=== PATIENT | female | born 1985 | race Caucasian/White ===

== ENCOUNTER 2018-09-01 02:22 | Inpatient (IN) | payer OTHER ==
[2018-09-01] MEDS ORDERED: KETOROLAC 30 MG/ML 1 ML VIAL IM STA (02:35)
[2018-09-01] MEDS: ONDANSETRON ODT 4 MG TAB PO STA ×2 (02:59→04:38)
--- NOTE | 2018-09-01 03:20 | XR ---
EXAMINATION TYPE: XR ankle limited RT DATE OF EXAM: 09/01/2018 COMPARISON: NONE HISTORY: Fell down the stairs. Pain. TECHNIQUE: 2 views FINDINGS: There is a 5 mm displaced transverse fracture of the medial malleolus. There is comminuted fracture distal shaft of the fibula. Ankle mortise is not significantly widened. The talus is intact. Subtalar joint appears normal. There is a 2 x 1 cm chip fracture of the posterior malleolus. IMPRESSION: There is trimalleolar type fracture of the ankle joint.
--- NOTE | 2018-09-01 03:21 | XR ---
EXAMINATION TYPE: XR foot limited RT DATE OF EXAM: 09/01/2018 COMPARISON: NONE HISTORY: Fall. Ankle pain. TECHNIQUE: 3 views FINDINGS: Metatarsals are intact. Joint spaces of the foot are intact. There are no erosions. There i s no subluxation. There is noted the trimalleolar type fracture of the distal tibia and fibula. IMPRESSION: No foot fracture seen.
[2018-09-01] MEDS ORDERED: MORPHINE SULFATE 2 MG/ML SYRINGE IVP STA (04:04)
[2018-09-01] MEDS ORDERED: SODIUM CHLORIDE 0.9% 1,000 ML IV ONE (04:04)
[2018-09-01] MEDS ORDERED: NALOXONE 0.4 MG/ML 1 ML VIAL IV PRN (04:05)
[2018-09-01] MEDS ORDERED: MORPHINE SULFATE 4 MG/ML SYRINGE IV PRN (04:05)
--- NOTE | 2018-09-01 04:06 | ED ---
Fall HPI - General Chief Complaint: Fall Stated Complaint: Fall, ankle injury Time Seen by Provider: 09/01/18 02:27 Source: EMS Mode of arrival: EMS - History of Present Illness Initial Comments: 33-year-old female patient presents to the emergency department today with complaints of right ankle pain after a slip and fall injury. Patient states that she was coming out of the bar and slipped down about 4 stairs twisting the ankle. States she is intoxicated. She denies hitting her head or losing consciousness. States that her only injury is the ankle. States she is unable to bear weight or walk on it. States it occurred just prior to arrival and she came right here. She denies any other injuries. She is unsure if she may be . States she is intoxicated. Patient denies any headache, neck pain, back pain, chest pain, shortness of breath, dizziness, weakness, abdominal pain , or difficulties with bowel movements or urination. - Related Data Allergies Allergy/AdvReac Type Severity Reaction Status Date / Time No Known Allergies Allergy Verified 09/01/18 02:26 Review of Systems ROS Statement: Those systems with pertinent positive or pertinent negative responses have been documented in the HPI. ROS Other: All systems not noted in ROS Statement are negative. Past Medical History Past Medical History: No Reported History History of Any Multi-Drug Resistant Organisms: None Reported Past Surgical History: No Surgical Hx Reported Past Psychological History: Anxiety Smoking Status: Never smoker Past Alcohol Use History: Occasional Past Drug Use History: None Reported General Exam Limitations: no limitations General appearance: alert, in no apparent distress, appears intoxicated, other ( Physical well-developed, well-nourished adult female patient in no acute distress. Vital signs upon presentation are temperature 98.1F, pulse 100, respirations 20, blood pressure 120/76, pulse ox 97% on room air.) Head exam: Present: atraumatic, normocephalic, normal inspection Eye exam: Present: normal appearance, PERRL, EOMI. Absent: scleral icterus, conjunctival injection, periorbital swelling ENT exam: Present: normal exam, normal oropharynx, mucous membranes moist Neck exam: Present: normal inspection, full ROM, other (Nontender, no step-off, no deformity to firm midline palpation of the posterior cervical spine. Full range of motion without pain or limitation.). Absent: tenderness, meningismus, lymphadenopathy Respiratory exam: Present: normal lung sounds bilaterally. Absent: respiratory distress, wheezes, rales, rhonchi, stridor Cardiovascular Exam: Present: regular rate, normal rhythm, normal heart sounds. Absent: systolic murmur, diastolic murmur, rubs, gallop, clicks GI/Abdominal exam: Present: soft, normal bowel sounds. Absent: distended, tenderness, guarding, rebound, rigid Extremities exam: Present: full ROM, tenderness (Tenderness over the entirety of the ankle, medial and lateral malleolus. ), normal capillary refill, other ( Soft tissue swelling surrounding the medial and lateral malleolus. Limited range of motion to the right ankle. Skin is pink, warm, and dry. Cap refills less than 3 seconds. Pedal and posttibial pulses 2+ and equal bilaterally.). Absent: normal inspection, pedal edema, joint swelling, calf tenderness Back exam: Present: normal inspection, other (Nontender, no step-off, no deformity to firm midline palpation of the thoracic and lumbar vertebrae. Full range of motion without pain or limitation.). Absent: vertebral tenderness Neurological exam: Present: alert, oriented X3, CN II-XII intact Psychiatric exam: Present: anxious Skin exam: Present: warm, dry, intact, normal color. Absent: rash Course Vital Signs 09/01/18 02:23 Temperature 98.1 F Pulse Rate 100 Respiratory 20 Rate Blood Pressure 120/76 O2 Sat by Pulse 97 Oximetry Procedures - Orthopedic Splinting/Casting Injury #1 Side: right Lower Extremity Injury Location: short leg Lower Extremity Immobilizer: posterior splint, stirrup splint Additional Comments: Patient is splinted in position of comfort. Neurovascular status intact after splint application. Skin is pink, warm, dry. She is able to move toes. Denies any numbness or tingling to the toes. Medical Decision Making - Medical Decision Making 33-year-old female patient presented to the emergency department today after soap and fall injury complaining of right ankle pain. X-ray did reveal a trimalleolar type fracture to the right ankle. Splint was applied as documented. Did discuss the case with [facility] hua [facility], we 'll admit her for observation. Pain management has been provided. - Radiology Data Radiology results: report reviewed, image reviewed 2 views of the right ankle are obtained. His 5 mm displaced transverse fracture of the medial malleolus. There is comminuted fracture distal shaft of the fibula. Ankle mortise is not significantly widened. The talus intact. Subtalar joint appears normal. There is a 2 x 1 cm chip fracture of the posterior malleolus. Impression by Dr. Santoyo shows trimalleolar type fracture of the ankle joint. 3 views of the right foot are obtained. Metatarsals are intact. Joint spaces aflutter intact. There are no erosions. There is no subluxation. There is noted the trimalleolar type fracture of the distal tibia and fibula. Impression by Dr. Santoyo shows no fracture seen Disposition Clinical Impression: Trimalleolar fracture of right ankle Disposition: ADMITTED IP TO THIS [facility] Condition: Serious Referrals: Michael Norris MD [Primary Care Provider] - 1-2 days Decision to Admit Reason: Admit from EC Decision Date: 09/01/18 Decision Time: 04:08
[2018-09-01] MEDS: SODIUM CHLORIDE 0.9% 1,000 ML IV SCH ×2 (04:52→16:49)
--- NOTE | 2018-09-01 05:11 | XR ---
EXAMINATION TYPE: XR ankle complete LT DATE OF EXAM: 09/01/2018 COMPARISON: NONE HISTORY: Ankle pain TECHNIQUE: 3 views FINDINGS: There is nondisplaced oblique fracture of the distal fibula. There is lateral soft tissue s welling. There is no dislocation. Joint spaces are normal. IMPRESSION: Lateral malleolus nondisplaced fracture.
--- NOTE | 2018-09-01 05:30 | ED ---
Medical Decision Making - Medical Decision Making [facility] added at 0506 right ankle was splinted patient started complaining of significant left ankle pain. Physical examination did reveal some left lateral malleoli or swelling. Neurovascular status intact to the left leg. X-ray was obtained and did show a nondisplaced oblique fracture of the distal fibula. Patient was splinted as documented. Again patient is being admitted for orthopedic evaluation in the morning. - Lab Data Lab Results 09/01/18 Range/Units 03:58 Urine HCG, Qual Not Detected (Not Detectd) - Radiology Data Radiology results: report reviewed, image reviewed 3 views of the left ankle are obtained. There is a nondisplaced oblique fracture of the distal fibula. There is lateral soft tissue swelling. No dislocation. Joint spaces are normal. Impression by Dr. Santoyo shows lateral malleolus nondisplaced fracture. Disposition Clinical Impression: Trimalleolar fracture of right ankle, Closed fracture of left distal fibula Disposition: ADMITTED IP TO THIS [facility] Condition: Serious Procedures - Orthopedic Splinting/Casting Injury #2 Side: left Lower Extremity Injury Location: short leg Lower Extremity Immobilizer: stirrup splint Additional Comments: Neurovascular status intact after splint application. Skin to toes is pink, warm, and dry. Cap refills less than 3 seconds. Patient able to wiggle toes. Does report improvement in her pain after splinting.
[2018-09-01 06:09] LABS: Basophils % (A) 1 %; Eosinophils # (A) 0.1 k/uL (0-0.7); Eosinophils % (A) 1 %; HCT 35.3 % (34.0-46.0); HGB 11.7 gm/dL (11.4-16.0); Lymphocytes # (A) 1.5 k/uL (1.0-4.8); Lymphocytes % (A) 18 %; MCH 29.2 pg (25.0-35.0); MCV 88.3 fL (80.0-100.0); Monocytes # (A) 0.3 k/uL (0-1.0); Monocytes % (A) 4 %; Neutrophils % (A) 75 %; Platelet Count 221 k/uL (150-450); RDW 13.9 % (11.5-15.5)
[2018-09-01 06:21] LABS: Partial Thromboplastin Time 22.1 sec (22.0-30.0); Prothrombin Time 9.7 sec (9.0-12.0)
[2018-09-01 06:24] LABS: ALT 30 U/L (9-52); AST 24 U/L (14-36); Albumin 4.4 g/dL (3.5-5.0); Alkaline Phosphatase 47 U/L (38-126); Anion Gap 13 mmol/L; Blood Urea Nitrogen 13 mg/dL (7-17); Calcium 9.6 mg/dL (8.4-10.2); Carbon Dioxide 19 mmol/L (22-30); Chloride 111 mmol/L (98-107); Glucose 103 mg/dL (74-99); Potassium 4.6 mmol/L (3.5-5.1); Sodium 143 mmol/L (137-145); Total Bilirubin 0.3 mg/dL (0.2-1.3); Total Protein 7.6 g/dL (6.3-8.2)
[2018-09-01 06:32] LABS: Alcohol 196 mg/dL
--- NOTE | 2018-09-01 11:46 | P.HPOR ---
History of Present Illness H&P Date: 09/01/18 Chief Complaint: Bilateral ankle fractures Patient is a 33-year-old female who presented to [facility] early this morning with regards to bilateral ankle pain. Patient was out of the bar, she was leaving she slipped on the stairs injuring both ankles. She was unable to bear any weight on the right ankle. She was brought to [facility]. Upon arrival to the hospital, imaging test demonstrated a trimalleolar fracture involving the right ankle. X-rays of the left ankle demonstrated a nondisplaced lateral malleolus fracture. I was contacted by emergency room staff regarding this patient. I was able to review the images. Patient was admitted under our care for further intervention. Patient was evaluated today at bedside, she is resting comfortably she has family at bedside. She notes most pain of the right ankle. She does note some lateral pain involving the left ankle. She denies any knee pain bilaterally, groin pain bilaterally, upper extremity discomfort, new onset cervical, thoracic or lumbar pain. She denies any previous surgery involving the right ankle or left ankle. She denies any chest pain, shortness of breath, abdominal discomfort, fever chills. Review of Systems Constitutional: Reports as per HPI Past Medical History Past Medical History: No Reported History Additional Past Medical History / Comment(s): Gestational diabetes, 10 weeks History of Any Multi-Drug Resistant Organisms: None Reported Past Surgical History: No Surgical Hx Reported Additional Past Surgical History / Comment(s): L foot cysts removed as a child Past Anesthesia/Blood Transfusion Reactions: No Reported Reaction, Motion Sickness Smoking Status: Never smoker - Past Family History Mother Family Medical History: Cancer Additional Family Medical History / Comment(s): Mother recently diagnosed wit thyroid cancer. Father Additional Family Medical History / Comment(s): Pt had little contact with her father. He at the age of 58yrs possibly from a MT. Medications and Allergies Home Medications Medication Instructions Recorded Confirmed Type Ibuprofen [Motrin Ib] 800 mg PO Q6H PRN 09/01/18 09/01/18 History Sertraline [Zoloft] 200 mg PO DAILY 09/01/18 09/01/18 History Allergies Allergy/AdvReac Type Severity Reaction Status Date / Time No Known Allergies Allergy Verified 09/01/18 07:41 Physical Examination Right lower extremity: Splint is in place involving the lower extremity. Skin is warm to touch both proximal distal to the splint. Sensation to light touch both proximal distal to the splinter intact. She is able to wiggle the toes and minimal difficulty. No knee pain with palpation, no groin pain with internal and external rotation. Left lower extremity: Splint is in place involving the lower extremity. Skin is warm to touch both proximal distal to the splint. Sensation to light touch both proximal distal splint intact. She is able to wiggle her toes with minimal difficulty. No pain involving the knee with palpation, no groin pain with internal and external rotation. Results - Labs Labs: Abnormal Lab Results - Last 24 Hours (Table) 09/01/18 Range/Units 05:00 Chloride 111 H (98-107) mmol/L Carbon Dioxide 19 L (22-30) mmol/L Glucose 103 H (74-99) mg/dL H & H 09/01/18 Range/Units 05:00 Hgb 11.7 (11.4-16.0) gm/dL Hct 35.3 (34.0-46.0) % Coagulation 09/01/18 Range/Units 05:00 INR 1.0 (<1.2) Result Diagrams: 09/01/18 05:00 09/01/18 05:00 - Diagnostic results Ankle/Foot x-ray: report reviewed, image reviewed Assessment and Plan Plan: Imaging: Multiple views of the right left ankle were obtained. Images demonstrated a trimalleolar fracture involving the right ankle. The images of the left ankle demonstrate a left lateral malleolus fracture. Assessment: 1. Displaced right trimalleolar ankle fracture 2. Nondisplaced left lateral malleolus ankle fracture 3. Status post slip and fall injury Plan: I was able to discuss the case, including with physical exam findings imaging studies might any Dr. Vasquez. We're like to proceed with surgical intervention of the right ankle, more specifically an open reduction internal fixation procedure. Our plan is for surgery on 09/01/2018. Risk and benefits of the procedure were discussed the patient and family at bedside today, they good understanding like to proceed. A bulky postoperative splint will be placed on the right ankle after surgery. Prescription will be placed for a Cam Walker boot involving the left ankle. Nonweightbearing, utilize crutches and wheelchair GI and DVT prophylaxis, will likely begin aspirin 325 mg daily after surgery Pain control Obtain consent Further recommendations to follow Time with Patient: Less than 30
[2018-09-01] MEDS ORDERED: IV FLUID CONTINUATION 700 ML IV ONE (11:58)
[2018-09-01] MEDS ORDERED: fentaNYL (PF) 50 MCG/ML 2 ML AMP IV ONE (12:12)
[2018-09-01] MEDS: ONDANSETRON 4 MG/2 ML VIAL IVP PRN (12:20)
[2018-09-01] MEDS ORDERED: fentaNYL (PF) 50 MCG/ML 2 ML AMP IVP ONE (13:10)
[2018-09-01] MEDS ORDERED: MIDAZOLAM 2 MG/2 ML VIAL IVP ONE (13:14)
[2018-09-01] MEDS ORDERED: fentaNYL (PF) 50 MCG/ML 2 ML AMP ONE (13:50)
[2018-09-01] MEDS ORDERED: PROPOFOL 10 MG/ML 20 ML VIAL IV ONE (13:50)
[2018-09-01] MEDS ORDERED: SUCCINYLCHOLINE CHLORIDE 100 MG/5 ML SYR IV ONE (13:50)
[2018-09-01] MEDS ORDERED: MIDAZOLAM 2 MG/2 ML VIAL ONE (13:50)
[2018-09-01] MEDS ORDERED: LIDOCAINE 1% INJ 10MG/ML (20 ML MDV) ONE (13:50)
[2018-09-01] MEDS ORDERED: ROPIVACAINE 5 MG/ML 30 ML VIAL ONE (13:50)
[2018-09-01] MEDS ORDERED: HYDROmorphone (PF) 1 MG/ML ONE (13:50)
[2018-09-01] MEDS ORDERED: SODIUM CHLORIDE 0.9% 50 ML with ceFAZolin 2,000 MG IV ONE ×2 (13:58)
[2018-09-01] MEDS ORDERED: LACTATED RINGERS 1,000 ML IV ONE (14:10)
[2018-09-01] MEDS ORDERED: ceFAZolin 1,000 MG in SODIUM CHLORIDE 0.9% 1,000 ML IRRIGATION ONE (14:40)
--- NOTE | 2018-09-01 15:32 | FL ---
EXAMINATION TYPE: FL guidance operating room, XR ankle limited RT DATE OF EXAM: 09/01/2018 CLINICAL HISTORY: Right ankle fracture. TECHNIQUE: Fluoroscopy. COMPARISON: None. FINDINGS: Fluoroscopic guidance was provided during open reduction internal fixation procedure perfo rmed by Dr. Vasquez. A total of 8 seconds of fluoroscopic time was utilized during the procedure a nd 2 spot intraoperative fluoroscopic images are acquired. Images acquired show placement of a lateral fixating plate through comminuted nondisplaced fracture d istal fibular diaphysis and placement of 2 fixating screws through intra-articular oblique displaced fracture of the medial malleolus. Satisfactory alignment is seen on intraoperative images saved. IMPRESSION: As Above.
[2018-09-01] MEDS ORDERED: HYDROmorphone 1 MG/ML 1 ML SYRINGE IVP PRN (15:49)
--- NOTE | 2018-09-01 15:53 | P.OP ---
Date of Procedure: 09/01/18 Preoperative Diagnosis: Right ankle displaced trimalleolar fracture Postoperative Diagnosis: Right ankle displaced trimalleolar fracture Procedure(s) Performed: Open reduction internal fixation right ankle trimalleolar fracture Implants: Synthes 6-hole DCP plate with 6 appropriate length 3.5 mm screws and 240 mm cannulated screws Anesthesia: GETA, regional (Popliteal block) Surgeon: Hermann Vasquez Manager Community Development #1: Joel Morley Estimated Blood Loss (ml): 25 Pathology: none sent Condition: stable Disposition: PACU Indications for Procedure: 33-year-old lady seen with a displaced right ankle trimalleolar fracture. I recommended open reduction and internal fixation. The patient was agreeable and consent was obtained. Operative Findings: See description of procedure Description of Procedure: She had a popliteal block performed by the department of anesthesia for postoperative pain management. The patient was taken to the operative suite. The patient underwent a general anesthetic by the department of anesthesia. Patient received preoperative IV antibiotics. A well-padded tourniquet was placed proximal right lower extremity. The right lower extremity was prepped and draped in the normal sterile orthopedic fashion. The tourniquet was insufflated to 350. An incision was now made based over the area of the lateral malleolar fracture sharply through skin. We dissected down to the fascia. I incised the fascia. I carefully bluntly dissected down the fracture. Retractors were positioned. There was a comminuted fracture the posterior butterfly fragment. The fracture was reduced with the assistance of Yogi CARD holding the clamp in place. I now chose a Synthes 6-hole DCP plate and secured it. Appropriate drill holes were made proximally and distally. Appropriate length 3.5 mm screws were now inserted which gave us good purchase and fixation. This was confirmed under fluoroscopy. I turned my attention to the medial malleolus. An incision was made in that area. Dissection was taken down to the medial malleolar fracture. We reduced the fracture. It was held and time position with reduction clamp by Yogi CARD while I introduced 2 K wires crossing the fracture site. He now introduced to 4.5 mm x 40 mm cancellous screws over the K wires. The K wires were removed. We had good solid fixation there. We now brought the C-arm into the operative field. The construct was reviewed under AP lateral and oblique intraoperative imaging. We had good reduction of the fracture and good position of our fixation. The posterior malleolar fracture appeared to be stable after securing the medial and lateral malleolar fractures. Spot films are captured intraoperatively to document this. The wound was irrigated with antibiotic irrigant. Subcu soft tissues at both incision sites were approximated 2-0 Vicryl. The skin was approximate with skin thaddeus of both incision sites. Sterile dressings were applied. The tourniquet was released with immediate capillary refill the entire foot and toes noted. The patient was placed into a modified bulky Oconnor splint with ankle in neutral position. The patient was then awakened, transferred to bed and recovery stable condition. Yogi CARD assisted with the procedure.
[2018-09-01] MEDS: traMADol 50 MG TAB PO SCH ×2 (17:48→21:38)
[2018-09-01] MEDS: HYDROmorphone 1 MG/ML 1 ML SYRINGE IVP PRN ×2 (19:23→23:07)
[2018-09-01] MEDS: ceFAZolin IN SWFI 2 GM/20 ML SYRINGE IVP SCH (21:38)
[2018-09-02] MEDS: HYDROcodone/APAP 7.5-325MG 1 EACH TAB PO PRN ×3 (00:05→12:41)
[2018-09-02] MEDS: HYDROmorphone 1 MG/ML 1 ML SYRINGE IVP PRN ×6 (02:56→18:55)
[2018-09-02] MEDS: ceFAZolin IN SWFI 2 GM/20 ML SYRINGE IVP SCH (05:49)
[2018-09-02] MEDS: ONDANSETRON 4 MG/2 ML VIAL IVP PRN (06:15)
[2018-09-02] MEDS: hydrOXYzine PAMOATE 25 MG CAP PO PRN ×3 (07:14→18:25)
[2018-09-02] MEDS: traMADol 50 MG TAB PO SCH ×4 (08:20→22:15)
[2018-09-02] MEDS: SODIUM CHLORIDE 0.9% 1,000 ML IV SCH ×2 (08:21→17:18)
[2018-09-02] MEDS ORDERED: MAGNESIUM HYDROXIDE 2,400 MG/10 ML CUP PO PRN (11:49)
--- NOTE | 2018-09-02 11:54 | P.PN ---
Subjective Progress Note Date: 09/02/18 Principal diagnosis: Status post ORIF right trimalleolar ankle fracture, left lateral malleolar ankle fracture Patient is examined today at bedside, her mom is with her. Patient notes pain involving the right ankle. Left ankle is controlled at this time. She remains nonweightbearing at this time. We have alter her pain medication orally. We are beginning Lovenox for DVT prophylaxis. She denies any chest pain or shortness of breath Objective - Vital Signs Vital signs: Vital Signs Temp 98.8 F 09/02/18 09:42 Pulse 101 H 09/02/18 09:42 Resp 20 09/02/18 09:42 BP 128/77 09/02/18 09:42 Pulse Ox 96 09/02/18 09:42 Intake & Output 09/01/18 09/02/18 09/02/18 18:59 06:59 18:59 Intake Total 1898 300 Output Total 25 Balance 1873 300 Intake: IV 1676 Sodium Chloride 0.9% 1, 375 000 ml @ 75 mls/hr IV . [id number] RICHARD Rx#:[id number] Intake, IV Titration 300 Amount Sodium Chloride 0.9% 1, 300 000 ml @ 75 mls/hr IV . [id number] RICHARD Rx#:[id number] Oral 222 Output: Estimated Blood Loss 25 Other: Voiding Method Bedpan Bedpan # Voids 1 1 - Exam Right lower extremity: Postop splint is in good position and condition Sensory exam to light touch both proximal distal to the splint are intact Patient is able wiggle the toes minimal difficulty Skin is warm to touch with proximal distal splint Left lower extremity: Posterior splint is in good position and condition Sensory exam to light touch both proximal distal splint are intact Patient is able to wiggle the toes minimal difficulty Skin is warm to touch both proximal distal to splint - Labs CBC & Chem 7: 09/01/18 05:00 09/01/18 05:00 Assessment and Plan Plan: Assessment: 1. Postop day #1 status post ORIF right trimalleolar ankle fracture 2. Nondisplaced left lateral malleolus ankle fracture 3. Status post slip and fall injury Plan: Continue with current pain medication regimen GI and DVT prophylaxis, we'll begin Lovenox 30 mg subcu daily Ice and elevate both ankles Nonweightbearing bilateral ankles Prescription has been placed for a Cam Walker boot for the left ankle, we will check fitting once delivered Due to patient's weightbearing restrictions on the bilateral ankles, we'll likely plan for discharge to rehab. Further recommendations to follow Time with Patient: Less than 30
[2018-09-02] MEDS: DOCUSATE 100 MG CAP PO PRN (12:38)
[2018-09-02] MEDS: SERTRALINE 100 MG TAB PO SCH (12:40)
[2018-09-02] MEDS: ENOXAPARIN 30 MG/0.3 ML SYRINGE SQ SCH (12:41)
--- NOTE | 2018-09-02 17:55 | P.ONQ ---
Anesthesiology Proc Note - PNB - Peripheral Nerve Block Performed Right Popliteal Single Time Out Performed: Yes (right saphenous nerve block) Procedure Start Time: 13:11 Procedure Stop Time: 13:13 Indication: Acute Post-Operative Pain, Requested by physician Sedation Type: Sedate with meaningful contact maintained Preparation: Sterile Prep Needle Size: 50mm (2") Needle Gauge: 21 Technique: Ultrasound Injectate: 0.5% Ropivacaine (see comment for volume) (ropi .5% 25 cc and 5cc) Blood Aspirated: No Pain Paresthesia on Injection Noted: No Resistance on Injection: Normal Events: Uneventful and Well Tolerated
[2018-09-02] MEDS: HYDROcodone/APAP 10-325MG 1 EACH TAB PO PRN (18:24)
--- NOTE | 2018-09-02 21:19 | CONS ---
CONSULTATION DATE OF CONSULTATION: 09/02/18. REASON FOR CONSULTATION: Medical management requested by Dr. Vasquez. CONSULTATION: This is a pleasant 33-year-old patient of Dr. Michael Norris. The patient is a 10 weeks. Chronic stable medical conditions include obesity, anxiety and OCD for which patient takes Zoloft. The patient is not breast-feeding. The patient on at night was outside and on the steps, she slipped and suffered fracture that is bimalleolar fracture to both the ankles. The patient underwent surgical repair of the same on the right ankle. The left one is in a supportive splint. No nausea, vomiting. Sitting on bed, otherwise rather comfortable. No dizziness. No lightheadedness. This was purely a mechanical fall. There is no chest pain, palpitation, no loss of consciousness. REVIEW OF SYSTEMS: CONSTITUTIONAL: None. HEENT: None. RESPIRATORY: None. CARDIOVASCULAR: GASTROINTESTINAL: None. GENITOURINARY: None. MUSCULOSKELETAL: As above. DERMATOLOGICAL, HEMATOLOGIC, LYMPHATIC: None. PSYCHIATRY: Anxiety and OCD symptoms. PAST MEDICAL HISTORY: Ten weeks , anxiety, OCD. PAST SURGICAL HISTORY: Left foot cyst removed as a child. SOCIAL HISTORY: The patient lives with a boyfriend and 10-week-old daughter. No smoking. Alcohol occasionally. No recreational drugs. FAMILY HISTORY: Mother diagnosed recently with thyroid cancer. HOME MEDICATIONS: Motrin 800 mg q.6h p.r.n., Zoloft 200 mg p.o. daily. ALLERGIES: None. PHYSICAL EXAMINATION: Temperature 97.7, pulse 104, respiration 20, blood pressure 96/60, pulse ox 96 percent on room air. GENERAL APPEARANCE: Well built, BMI 38.3. Sitting up, comfortable. EYES: Pupils equal. Conjunctivae normal. HEENT: External appearance of nose and ears normal. Oral cavity normal. NECK: JVD not raised. Mass not palpable. RESPIRATORY: Effort normal. Lungs are clear. CARDIOVASCULAR: 1st and 2nd sounds, no edema. ABDOMEN: Soft, nontender. Liver and spleen not palpable. LYMPHATIC: No lymph node palpable in the neck or axillae. PSYCHIATRY: Alert, oriented x3. Mood and affect normal. NEUROLOGICAL: Pupils equal. Cranial nerves grossly intact. Power and sensation grossly intact. EXTREMITIES: Both the feet in a dressing. INVESTIGATIONS: White count 8, hemoglobin 11.7, potassium 4.6, BUN 13, creatinine 0.71, serum alcohol 196. Urine HCG negative. Left ankle x-ray showed lateral malleolus nondisplaced fracture and trimalleolar type fracture of the right ankle. ASSESSMENT: 1. Bilateral ankle fracture with surgical intervention for the same on the right side. 2. Obesity; BMI 38.3. 3. Anxiety disorder not otherwise specified. 4. Obsessive compulsive disorder. 5. 10 weeks with the first child. The patient is not breast-feeding. 6. Serum alcohol positive on presentation, did not want to discuss this any further in front of the mother as she denied alcohol. Will come back and discuss the same, if that is an issue. PLAN: Continue medication and treatment plan. Patient's Zoloft is resumed. Patient is getting IV fluids. Also Lovenox for DVT prophylaxis per Dr. Vasquez. Care was discussed with the patient and mother at the bedside. Questions were answered. Thank you, Dr. Vasquez. MMAGUSTO / VANN: [id number] /
[2018-09-03] MEDS: HYDROcodone/APAP 10-325MG 1 EACH TAB PO PRN ×2 (02:30→08:03)
[2018-09-03] MEDS: hydrOXYzine PAMOATE 25 MG CAP PO PRN ×4 (02:32→20:21)
[2018-09-03] MEDS: HYDROmorphone 1 MG/ML 1 ML SYRINGE IVP PRN ×6 (02:39→23:07)
[2018-09-03] MEDS: SERTRALINE 100 MG TAB PO SCH (07:59)
[2018-09-03] MEDS: ENOXAPARIN 30 MG/0.3 ML SYRINGE SQ SCH (07:59)
[2018-09-03] MEDS: traMADol 50 MG TAB PO SCH ×4 (08:02→21:29)
--- NOTE | 2018-09-03 09:05 | P.PN ---
Subjective Progress Note Date: 09/03/18 Principal diagnosis: Status post ORIF right trimalleolar ankle fracture, left lateral malleolar ankle fracture Patient is examined today at bedside. Patient's pain is improved today. We did ultimately medication slightly yesterday. She denies any chest pain or shortness of breath. Objective - Vital Signs Vital signs: Vital Signs Temp 98.6 F 09/03/18 08:06 Pulse 83 09/03/18 08:06 Resp 20 09/03/18 08:06 BP 119/67 09/03/18 08:06 Pulse Ox 96 09/03/18 08:06 Intake & Output 09/02/18 09/03/18 09/03/18 18:59 06:59 18:59 Intake Total 600 Balance 600 Intake: IV 600 Sodium Chloride 0.9% 1, 600 000 ml @ 75 mls/hr IV . [id number] [facility] Rx#:[id number] Other: # Voids 2 1 - Exam Right lower extremity: Postop splint is in good position and condition Sensory exam to light touch both proximal distal to the splint are intact Patient is able wiggle the toes minimal difficulty Skin is warm to touch with proximal distal splint Left lower extremity: Posterior splint is in good position and condition Sensory exam to light touch both proximal distal splint are intact Patient is able to wiggle the toes minimal difficulty Skin is warm to touch both proximal distal to splint - Labs CBC & Chem 7: 09/01/18 05:00 09/01/18 05:00 Assessment and Plan Plan: Assessment: 1. Postop day #2 status post ORIF right trimalleolar ankle fracture 2. Nondisplaced left lateral malleolus ankle fracture 3. Status post slip and fall injury Plan: Continue with current pain medication regimen GI and DVT prophylaxis, we'll begin Lovenox 30 mg subcu daily Ice and elevate both ankles Nonweightbearing bilateral ankles Prescription has been placed for a Cam Walker boot for the left ankle, we will check fitting once delivered Due to patient's weightbearing restrictions on the bilateral ankles, we'll likely plan for discharge to rehab. Further recommendations to follow Time with Patient: Less than 30
[2018-09-03] MEDS: SODIUM CHLORIDE 0.9% 1,000 ML IV SCH ×2 (11:05→23:23)
[2018-09-03] MEDS: DOCUSATE 100 MG CAP PO PRN (11:17)
[2018-09-03] MEDS: HYDROcodone/APAP 7.5-325MG 1 EACH TAB PO PRN ×2 (14:00→20:21)
[2018-09-03] MEDS ORDERED: diphenhydrAMINE 25 MG CAP PO PRN (17:55)
--- NOTE | 2018-09-03 21:20 | PN ---
PROGRESS NOTE DATE OF SERVICE: 09/03/2018 PRESENTING COMPLAINT: Ankle surgery. INTERVAL HISTORY: Patient is status post slip and fall with bilateral ankle fracture with surgery in the right ankle. Pain is present today. Patient is complaining of pruritus for which I ordered Benadryl. Otherwise, tolerating a diet. Sitting up in bed. REVIEW OF SYSTEMS: Done for constitutional, cardiovascular, GI, pulmonary, musculoskeletal and relevant findings as above. CURRENT MEDICATIONS: Reviewed. PHYSICAL EXAMINATION: VITAL SIGNS: Temperature 98.5, pulse 84, respiratory 18, blood pressure 120/66, pulse ox 97% on room air. GENERAL APPEARANCE: Sitting on bed. Awake. Comfortable. EYES: Pupils are equal. Conjunctivae normal. HEENT: External appearance of nose and ears normal. Oral cavity normal. NECK: JVD not raised. Mass not palpable. RESPIRATORY: Effort normal. LUNGS are clear. CARDIOVASCULAR: 1st and 2nd sounds normal. No edema. ABDOMEN: Soft, nontender. Liver and spleen is not palpable. PSYCHIATRY: Alert and oriented times three. Mood and affect normal. EXTREMITIES: Both ankles in a dressing. INVESTIGATIONS: No blood work from today. ASSESSMENT: 1. Bilateral ankle fracture and surgical intervention for the same on the right ankle. 2. Obesity BMI 38.3. 3. Anxiety disorder not otherwise specified. 4. Obsessive compulsive disorder, stable. 5. 10 weeks with the first child. 6. Pruritus probably side effect of medications. PLAN: I did talk to the patient. It was her mother's alliance party celebration, that is why she drank alcohol. The patient is not an alcoholic. Dr. Vasquez is looking into inpatient rehab. DOC / YRIS: [id number] /
[2018-09-04] MEDS: hydrOXYzine PAMOATE 25 MG CAP PO PRN (02:03)
[2018-09-04] MEDS: HYDROcodone/APAP 7.5-325MG 1 EACH TAB PO PRN ×2 (02:03→10:43)
[2018-09-04] MEDS: HYDROmorphone 1 MG/ML 1 ML SYRINGE IVP PRN ×4 (03:30→20:17)
[2018-09-04] MEDS: SERTRALINE 100 MG TAB PO SCH (07:13)
[2018-09-04] MEDS: traMADol 50 MG TAB PO SCH ×4 (07:13→22:04)
[2018-09-04] MEDS: ENOXAPARIN 30 MG/0.3 ML SYRINGE SQ SCH (07:14)
[2018-09-04] MEDS: DOCUSATE 100 MG CAP PO PRN (07:18)
[2018-09-04] MEDS: SODIUM CHLORIDE 0.9% 1,000 ML IV SCH (10:44)
--- NOTE | 2018-09-04 14:32 | P.ONQ ---
Anesthesiology Proc Note - PNB - Peripheral Nerve Block Performed Adductor Canal Time Out Performed: Yes (Procedure was done and the patient room in the right leg was confirmed) Procedure Start Time: 11:05 Procedure Stop Time: 11:10 Indication: Acute Post-Operative Pain, Analgesia, Requested by physician Sedation Type: Awake Preparation: Sterile Prep Position: Supine Catheter: None Needle Types: On-Q Needle Size: 100mm (4") Needle Gauge: 20 Technique: Ultrasound Injectate: Other (see comment) (0.5% bupivacaine with Epinepherine 1:200k 20cc) Adjunct: Epinephrine (see comment for dilution ratio) (1:200k)
--- NOTE | 2018-09-04 15:52 | P.PN ---
Subjective Progress Note Date: 09/04/18 Principal diagnosis: Status post ORIF right trimalleolar ankle fracture, left lateral malleolar ankle fracture Patient is examined today at bedside. Patient did receive a abductor canal block today. She denies any chest pain or shortness of breath. Objective - Vital Signs Vital signs: Vital Signs Temp 98.3 F 09/04/18 07:25 Pulse 75 09/04/18 07:25 Resp 12 09/04/18 07:25 BP 99/64 09/04/18 07:25 Pulse Ox 97 09/04/18 07:25 Intake & Output 09/03/18 09/04/18 09/04/18 18:59 06:59 18:59 Intake Total 262.5 Output Total 600 Balance 262.5 -600 Intake: IV 262.5 Sodium Chloride 0.9% 1, 262.5 000 ml @ 75 mls/hr IV . [id number] [facility] Rx#:[id number] Output: Urine 600 Other: Voiding Method Bedpan # Voids 2 3 3 - Exam Right lower extremity: Postop splint is in good position and condition Sensory exam to light touch both proximal distal to the splint are intact Patient is able wiggle the toes minimal difficulty Skin is warm to touch with proximal distal splint Left lower extremity: Patient is placed in a Cam Walker boot Sensory exam to light touch both proximal distal splint are intact Patient is able to wiggle the toes minimal difficulty Skin is warm to touch both proximal distal to splint - Labs CBC & Chem 7: 09/01/18 05:00 09/01/18 05:00 Assessment and Plan Plan: Assessment: 1. Postop day #3 status post ORIF right trimalleolar ankle fracture 2. Nondisplaced left lateral malleolus ankle fracture 3. Status post slip and fall injury Plan: Continue with current pain medication regimen GI and DVT prophylaxis, we'll begin Lovenox 30 mg subcu daily Ice and elevate both ankles Nonweightbearing bilateral ankles Anticipated discharge to rehab tomorrow Time with Patient: Less than 30
--- NOTE | 2018-09-04 16:57 | PN ---
PROGRESS NOTE DATE OF SERVICE: 09/04/2018 PRESENTING COMPLAINT: Ankle surgery. INTERVAL HISTORY: Patient is status post slip and fall with bilateral ankle fracture with surgery on the right ankle. Pain is decently controlled. Tolerating her diet. Pruritus is better. Waiting to go down to rehab. REVIEW OF SYSTEMS: Done for constitutional, cardiovascular, GI, pulmonary, musculoskeletal; relevant findings as above. CURRENT MEDICATIONS: Reviewed. PHYSICAL EXAMINATION: Temperature 98.3, pulse 75, respiration 12, blood pressure 99/64, pulse ox 97% on room air. GENERAL APPEARANCE: Sitting up, awake. Comfortable. EYES: Pupils equal. Conjunctivae normal. HEENT: External appearance of nose and ears normal. Oral cavity normal. NECK: JVD not raised. Mass not palpable. RESPIRATORY: Effort normal. Lungs are clear. CARDIOVASCULAR: First and second sounds normal. No edema. ABDOMEN: Soft, non-tender. Liver and spleen not palpable. PSYCHIATRY: Alert and oriented x3. Mood and affect normal. EXTREMITIES: Both ankles in dressing. INVESTIGATIONS: No blood work from today. ASSESSMENT: 1. Bilateral ankle fracture and surgical intervention for the same on the right ankle. 2. Obesity; body mass index 38.3. 3. Anxiety disorder not otherwise specified. 4. Obsessive compulsive disorder, stable. 5. 10 weeks with first child. 6. Pruritus secondary to side effect of medications, improved. PLAN: Continue current medication and treatment plan. Patient is waiting to go down to the rehab. MMAGUSTO / VANN: [id number] /
[2018-09-05] MEDS: HYDROcodone/APAP 7.5-325MG 1 EACH TAB PO PRN ×3 (00:04→14:45)
[2018-09-05] MEDS: SODIUM CHLORIDE 0.9% 1,000 ML IV SCH ×2 (01:37→18:41)
[2018-09-05] MEDS: hydrOXYzine PAMOATE 25 MG CAP PO PRN (07:53)
[2018-09-05] MEDS: SERTRALINE 100 MG TAB PO SCH (10:28)
[2018-09-05] MEDS: traMADol 50 MG TAB PO SCH ×4 (10:28→22:37)
[2018-09-05] MEDS: ENOXAPARIN 30 MG/0.3 ML SYRINGE SQ SCH (10:30)
[2018-09-05] MEDS: DOCUSATE 100 MG CAP PO PRN (10:45)
--- NOTE | 2018-09-05 12:24 | P.PN ---
Subjective Progress Note Date: 09/05/18 Principal diagnosis: Status post ORIF right trimalleolar ankle fracture, left lateral malleolar ankle fracture Patient is examined today at bedside. No acute complaints at this time. She denies any chest pain or shortness of breath. Objective - Vital Signs Vital signs: Vital Signs Temp 98.1 F 09/05/18 08:00 Pulse 98 09/05/18 08:00 Resp 16 09/05/18 08:00 BP 152/88 09/05/18 08:00 Pulse Ox 100 09/05/18 08:00 Intake & Output 09/04/18 09/05/18 09/05/18 18:59 06:59 18:59 Intake Total 720 180 Output Total 600 Balance -600 720 180 Intake: Oral 720 180 Output: Urine 600 Other: # Voids 3 2 - Exam Right lower extremity: Postop splint is in good position and condition Sensory exam to light touch both proximal distal to the splint are intact Patient is able wiggle the toes minimal difficulty Skin is warm to touch with proximal distal splint Left lower extremity: Patient is placed in a Cam Walker boot Sensory exam to light touch both proximal distal splint are intact Patient is able to wiggle the toes minimal difficulty Skin is warm to touch both proximal distal to splint - Labs CBC & Chem 7: 09/01/18 05:00 09/01/18 05:00 Assessment and Plan Plan: Assessment: 1. Postop day #4 status post ORIF right trimalleolar ankle fracture 2. Nondisplaced left lateral malleolus ankle fracture 3. Status post slip and fall injury Plan: Continue with current pain medication regimen GI and DVT prophylaxis, we'll begin Lovenox 30 mg subcu daily Ice and elevate both ankles Nonweightbearing bilateral ankles Patient stable for discharge, awaiting insurance Time with Patient: Less than 30
[2018-09-05] MEDS: HYDROmorphone 1 MG/ML 1 ML SYRINGE IVP PRN (20:55)
--- NOTE | 2018-09-05 21:37 | PN ---
PROGRESS NOTE DATE OF SERVICE: 09/05/18. PRESENTING COMPLAINT: Ankle surgery. INTERVAL HISTORY: Patient is status post slip and fall with bilateral ankle fracture with surgery on the right ankle. Tolerating a diet. Pruritus is well controlled. Awaiting to rehab. Tolerating a diet. No nausea, vomiting. REVIEW OF SYSTEMS: Done for constitutional, cardiovascular, GI, pulmonary, musculoskeletal; relevant findings as above. CURRENT MEDICATIONS: Reviewed. PHYSICAL EXAMINATION: Temperature 98.1, pulse 98, respiration 16, blood pressure 152/88, pulse 100 percent on room air. GENERAL APPEARANCE: Sitting in bed, awake, comfortable. EYES: Pupils equal. Conjunctivae normal. HEENT: External appearance of nose and ears normal. Oral cavity normal. NECK: JVD not raised. Mass not palpable. RESPIRATORY: Effort, lungs are clear. CARDIOVASCULAR: First and second sounds, no edema. ABDOMEN: Soft, nontender. Liver and spleen not palpable. PSYCHIATRY: Alert and oriented x3. Mood and affect normal. EXTREMITIES: Both ankles in a dressing and a cast. INVESTIGATIONS: No blood work. ASSESSMENT: 1. Bilateral ankle fracture with surgical intervention for the same on the right ankle. 2. Obesity, BMI 38.3. 3. Anxiety disorder, not otherwise specified. 4. Obsessive-compulsive disorder, stable. 5. 10 weeks with first child. 6. Pruritus secondary to side effect from medications, improved. PLAN: Care was discussed with the patient. Medically stable. Awaiting to go down to rehab. MMODL / IJN: [id number] /
[2018-09-06 00:03] VITALS: RESP 16
[2018-09-06] MEDS: SODIUM CHLORIDE 0.9% 1,000 ML IV SCH (04:20)
[2018-09-06] MEDS: HYDROcodone/APAP 7.5-325MG 1 EACH TAB PO PRN ×2 (05:11→12:26)
[2018-09-06 07:58] VITALS: BP 134/84; PULSE 74; TEMP 98.3
[2018-09-06] MEDS: hydrOXYzine PAMOATE 25 MG CAP PO PRN ×2 (09:07→13:54)
[2018-09-06] MEDS: SERTRALINE 100 MG TAB PO SCH (09:08)
[2018-09-06] MEDS: traMADol 50 MG TAB PO SCH ×2 (09:09→12:28)
[2018-09-06] MEDS: ENOXAPARIN 30 MG/0.3 ML SYRINGE SQ SCH (09:09)
--- NOTE | 2018-09-06 11:23 | P.PN ---
Subjective Progress Note Date: 09/06/18 Principal diagnosis: Status post ORIF right trimalleolar ankle fracture, left lateral malleolar ankle fracture Patient is examined today at bedside. No acute complaints at this time. She denies any chest pain or shortness of breath. Objective - Vital Signs Vital signs: Vital Signs Temp 98.3 F 09/06/18 07:57 Pulse 74 09/06/18 07:57 Resp 16 09/06/18 07:57 BP 134/84 09/06/18 07:57 Pulse Ox 98 09/06/18 07:57 Intake & Output 09/05/18 09/06/18 09/06/18 18:59 06:59 18:59 Intake Total 525 Balance 525 Intake: Oral 525 Other: Voiding Method Bedpan # Voids 1 2 1 - Exam Right lower extremity: Postop splint is in good position and condition Sensory exam to light touch both proximal distal to the splint are intact Patient is able wiggle the toes minimal difficulty Skin is warm to touch with proximal distal splint Left lower extremity: Patient is placed in a Cam Walker boot Sensory exam to light touch both proximal distal splint are intact Patient is able to wiggle the toes minimal difficulty Skin is warm to touch both proximal distal to splint - Labs CBC & Chem 7: 09/01/18 05:00 09/01/18 05:00 Assessment and Plan Plan: Assessment: 1. Postop day #5 status post ORIF right trimalleolar ankle fracture 2. Nondisplaced left lateral malleolus ankle fracture 3. Status post slip and fall injury Plan: Plan for discharge on oral medication GI and DVT prophylaxis, aspirin 325 mg daily Ice and elevate both ankles Nonweightbearing bilateral ankles Plan for discharge to rehab today Time with Patient: Less than 30
--- NOTE | 2018-09-06 11:27 | P.DS ---
Providers Date of admission: 09/02/18 12:21 Expected date of discharge: 09/06/18 Attending physician: Hermann Vasquez Consults: 09/02/18 01:15 Consult Physician Routine Consulting Provider: René Reyes Consult Reason/Comments: Medical management Do you want consulting provider notified?: Yes, Notify in am 09/02/18 13:33 Consult to Anesthesia Stat Consulting Provider: Anesthesia,Services Consult Reason/Comments: nerve block right leg , pain management. Primary care physician: Michael Norris [facility] Course: Date of admission: 09/01/2018 Date of discharge: 09/06/2018 Admission diagnosis: Displacing comminuted right trimalleolar ankle fracture, nondisplaced left lateral malleolus ankle fracture Discharge diagnosis: Status post open reduction internal fixation right trimalleolar ankle fracture, nondisplaced left lateral malleolus ankle fracture Attending physician: Dr. 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 Patient slipped down some stairs and leaving the bar. She had immediate pain in malalignment of the right ankle. Upon arrival to the hospital, imaging lab test were done. Images demonstrated a displaced right trimalleolar ankle fracture and a nondisplaced left lateral malleolus ankle fracture. Patient was admitted under orthopedic care was plan for surgical intervention. Hospital course: Details of patient's surgery can be found in operative report. Patient tolerated the procedure well and was subsequently transported to orthopedic floor. Patient's orthopeidc and medical care was provided daily. Patient had daily laboratory tests performed for evaluation of overall blood counts. Patient was treated with Lovenox for their postoperative DVT prophylaxis during their inpatient stay. Patient was noted to have a relatively uneventful postoperative course. Patient reported satisfactory pain control with oral pain medications by postoperative day 3. Patient showed satisfactory progress with physical therapy. Patient moved steadily through the program and had no difficulty meeting the goals by postoperative day 2. Given patient's otherwise satisfactory course and having met physical therapy goals, plan is to discharge patient rehab on postoperative day 5. Discharge condition/disposition: Patient will be discharged rehab in stable condition. Discharge medications: Instructions are given on resumption of patient's normal daily medications per primary care recommendation, in addition patient will be prescribed [place] 7.5 mg/325 mg, tramadol 50 mg, Colace 100 mg, aspirin 325 mg. Discharge instructions: 1. Utilize Cam Walker boot on the left ankle, okay to remove when showering. Do not remove splint on the right ankle. 2. Nonweightbearing bilateral lower extremities 3. Ice and elevate when necessary. Do not exceed 20 minutes per hour with ice pack. 4. Utilize compression sleeve until seen at first follow up appointment. 5. Pain meds and anticoagulants per prescription. 6. Pain medication has potential to cause constipation. Increase oral fluid and fiber intake. Contact primary care provider if you have not had a bowel movement within 48 hours after discharge 7. Follow up in office at 2 weeks postop with Yogi Morley PA-C 8. Follow up with your primary care doctor 7-10 days after discharge. 9. Contact [facility] with any questions, . Procedures: open reduction internal fixation right trimalleolar ankle fracture Patient Condition at Discharge: Serious Plan - Discharge Summary Discharge Rx Participant: No New Discharge Prescriptions: New Aspirin 325 mg PO BID #30 tab Docusate [Colace] 100 mg PO DAILY #30 capsule HYDROcodone/APAP 7.5-325MG [[place] 7.5] 1 - 2 each PO Q6HR PRN #56 tab PRN Reason: Pain traMADol HCl [Ultram] 50 mg PO Q6H PRN #28 tab PRN Reason: Pain No Action Sertraline [Zoloft] 200 mg PO DAILY Ibuprofen [Motrin Ib] 800 mg PO Q6H PRN PRN Reason: Pain Discharge Medication List Ibuprofen [Motrin Ib] 800 mg PO Q6H PRN 09/01/18 [History] Sertraline [Zoloft] 200 mg PO DAILY 09/01/18 [History] Aspirin 325 mg PO BID #30 tab 09/06/18 [Rx] Docusate [Colace] 100 mg PO DAILY #30 capsule 09/06/18 [Rx] HYDROcodone/APAP 7.5-325MG [[place] 7.5] 1 - 2 each PO Q6HR PRN #56 tab 09/06/18 [ Rx] traMADol HCl [Ultram] 50 mg PO Q6H PRN #28 tab 09/06/18 [Rx] Follow up Appointment(s)/Referral(s): Michael Norris MD [Primary Care Provider] - 1-2 days oJel Morley PAC [PHYSICIAN LAB SYSTEMS ANALYST] - 09/15/18 3:50 pm Activity/Diet/Wound Care/Special Instructions: [facility] - [phone] - delivered to bedside Orthopedic discharge instructions: 1. Do not remove splint on right ankle, okay to remove splint and left ankle when showering 2. Nonweightbearing bilateral lower extremities 3. Ice and elevate often 4. Pain medication as needed 5. Aspirin 325 mg daily for DVT prophylaxis 6. Follow-up at [facility] in 2 weeks for recheck Discharge Disposition: TRANSFER TO SNF/ECF
--- NOTE | 2018-09-06 20:20 | PN ---
PROGRESS NOTE DATE OF SERVICE: 09/06/18 PRESENTING COMPLAINT: Ankle surgery. INTERVAL HISTORY: Patient is status post slip and fall with bilateral ankle fracture with surgery on the right ankle. Continues to do well. Awaiting to go down to the rehab today. Tolerating a diet. No new issues. REVIEW OF SYSTEMS: Done for constitutional, cardiovascular, GI, pulmonary, musculoskeletal; relevant findings as above. CURRENT MEDICATIONS: Reviewed. PHYSICAL EXAMINATION: Temperature 98.3, pulse 74, respiration 16, blood pressure 134/84, pulse ox 98% on room air. GENERAL APPEARANCE: Sitting up on bed, comfortable. EYES: Pupils equal. Conjunctivae normal. HEENT: External appearance of nose and ears normal. Oral cavity normal. NECK: JVD not raised. Mass not palpable. RESPIRATORY: Effort, lungs are clear. CARDIOVASCULAR: First and second sounds, no edema. ABDOMEN: Soft, nontender. Liver and spleen not palpable. PSYCHIATRY: Alert and oriented x3. Mood and affect normal. ASSESSMENT: 1. Bilateral ankle fracture with surgical intervention for the same on the right ankle. 2. Obesity, BMI 38.3. 3. Anxiety disorder, not otherwise specified. 4. Obsessive-compulsive disorder, stable. 5. 10 weeks with the 1st child. 6. Pruritus secondary to side effect of medications, stable. PLAN: Continue current medication and treatment plan. Patient is medically stable. MMODL / IJN: [id number] /
== END 2018-09-06 14:25 | DRG 494 ==
LOC: EC 02:22 → 4SSUR 04:06 → OBSVTOIN 09-02 12:21
PROVIDERS: ADMIT Orthopaedic Surgery; ATTEND Orthopaedic Surgery
PROC: 0QSG04Z Reposition Right Tibia with Internal Fixation Device, Open Approach (ICD-10-PCS; principal; 2018-09-01 08:30)
PROC: 0QSJ04Z Reposition Right Fibula with Internal Fixation Device, Open Approach (ICD-10-PCS; principal; 2018-09-01 08:30)
DX: S82.851A Displaced trimalleolar fracture of right lower leg, initial encounter for closed fracture (principal); E66.9 Obesity, unspecified; F41.9 Anxiety disorder, unspecified; F42.9 Obsessive-compulsive disorder, unspecified; L29.9 Pruritus, unspecified; T50.905A Adverse effect of unspecified drugs, medicaments and biological substances, initial encounter; W01.0XXA Fall on same level from slipping, tripping and stumbling without subsequent striking against object, initial encounter; X50.1XXA Overexertion from prolonged static or awkward postures, initial encounter; Z68.38 Body mass index [BMI] 38.0-38.9, adult; Z80.8 Family history of malignant neoplasm of other organs or systems; Z86.32 Personal history of gestational diabetes; Z79.1 Long term (current) use of non-steroidal anti-inflammatories (NSAID); Z79.899 Other long term (current) drug therapy; S82.65XA Nondisplaced fracture of lateral malleolus of left fibula, initial encounter for closed fracture
CPT/HCPCS: 29515; 80053; 80320; 81025; 85025; 85610; 85730; 96361; 96374; 96375; 99284

== ENCOUNTER 2019-05-27 18:21 | Emergency (ER) | payer OTHER ==
[2019-05-27 18:54] VITALS: BP 141/86; PULSE 90; RESP 18; TEMP 98.4
[2019-05-27] MEDS ORDERED: ACET/COD 300 MG/30 MG STARTER PACK 6 TAB BTL PO STA (20:03)
[2019-05-27] MEDS ORDERED: PENICILLIN VK 500MG STARTER 4 TAB BTL PO STA (20:04)
--- NOTE | 2019-05-27 20:05 | ED ---
General Adult HPI - General Chief complaint: Dental/Oral Stated complaint: Dry Socket Time Seen by Provider: 05/27/19 19:25 Source: patient, RN notes reviewed Mode of arrival: ambulatory Limitations: no limitations - History of Present Illness Initial comments: 34-year-old female without any significant past medical history presents to the emergency department for a chief complaint of dental pain 2 days. Patient states this started yesterday and then worsened today. States she had a tooth pulled on . States she has been trying to call her dentist but has not been successful in reaching them. Denies fevers or chills. States it feels like there is a hole in her jaw.Patient has no other complaints at this time including shortness of breath, chest pain, abdominal pain, nausea or vomiting, headache, or visual changes. - Related Data Home Medications Medication Instructions Recorded Confirmed Ibuprofen [Motrin Ib] 800 mg PO Q6H PRN 09/01/18 09/01/18 Sertraline [Zoloft] 200 mg PO DAILY 09/01/18 09/01/18 Previous Rx's Medication Instructions Recorded Aspirin 325 mg PO BID #30 tab 09/06/18 Docusate [Colace] 100 mg PO DAILY #30 capsule 09/06/18 HYDROcodone/APAP 7.5-325MG [[place] 1 - 2 each PO Q6HR PRN #56 tab 09/06/18 7.5] traMADol HCl [Ultram] 50 mg PO Q6H PRN #28 tab 09/06/18 Penicillin V Potassium [Pen Vee K] 500 mg PO Q6H 10 Days #40 tablet 05/27/19 Allergies Allergy/AdvReac Type Severity Reaction Status Date / Time No Known Allergies Allergy Verified 09/01/18 07:41 Review of Systems ROS Statement: Those systems with pertinent positive or pertinent negative responses have been documented in the HPI. ROS Other: All systems not noted in ROS Statement are negative. Past Medical History Past Medical History: No Reported History Additional Past Medical History / Comment(s): Gestational diabetes, 10 weeks History of Any Multi-Drug Resistant Organisms: None Reported Past Surgical History: No Surgical Hx Reported, Orthopedic Surgery Additional Past Surgical History / Comment(s): right ankle surgery, L foot cysts removed as a child Past Anesthesia/Blood Transfusion Reactions: No Reported Reaction, Motion Sickness Past Psychological History: Anxiety Smoking Status: Never smoker Past Alcohol Use History: None Reported Past Drug Use History: Marijuana - Past Family History Mother Family Medical History: Cancer Additional Family Medical History / Comment(s): Mother recently diagnosed wit thyroid cancer. Father Additional Family Medical History / Comment(s): Pt had little contact with her father. He at the age of 58yrs possibly from a [place]. General Exam Limitations: no limitations General appearance: alert, in no apparent distress Head exam: Present: atraumatic, normocephalic, normal inspection Eye exam: Present: normal appearance, PERRL, EOMI. Absent: scleral icterus, conjunctival injection, periorbital swelling ENT exam: Present: normal exam, mucous membranes moist, TM's normal bilaterally, normal external ear exam, other (Patient is able to fully open and close the mouth, no evidence of trismus.). Absent: normal oropharynx (Appears to have a dry socket of tooth 30. No evidence of dental abscess. No.Purulent Drainage. No sublingual edema.) Neck exam: Present: normal inspection, full ROM. Absent: tenderness, meningismus Respiratory exam: Present: normal lung sounds bilaterally. Absent: respiratory distress, wheezes, rales, rhonchi, stridor Cardiovascular Exam: Present: regular rate, normal rhythm, normal heart sounds. Absent: systolic murmur, diastolic murmur, rubs, gallop, clicks GI/Abdominal exam: Present: soft, normal bowel sounds. Absent: distended, tenderness, guarding, rebound, rigid Neurological exam: Present: alert, oriented X3 Psychiatric exam: Present: normal affect, normal mood Course Vital Signs 05/27/19 18:51 Temperature 98.4 F Pulse Rate 90 Respiratory 18 Rate Blood Pressure 141/86 O2 Sat by Pulse 97 Oximetry Medical Decision Making - Medical Decision Making 34-year-old female presents for dental pain. Patient had a tooth pulled on and has had pain for the past 2 days. Patient has been taking Motrin with minimal relief. Denies fever or chills. Patient denies chance of . On exam patient appears to have a dry socket of tooth 30. No purulent Drainage. No abscess with palpation of gumline. No neck pain or tenderness. No sublingual edema. Patient will be given antibiotics. She will also be given a starter pack of Tylenol 3 to take in addition to the Motrin for breakthrough pain. Discussed using teabag by steeping them for 10 minutes and then refrigerating them and then putting them in the area for comfort. Discussed f/u with dentist first thing tomorrow morning for possible clove packing. Patient does agree to call in the morning. Disposition Clinical Impression: Pain, dental Disposition: HOME SELF-CARE Condition: Good Instructions (If sedation given, give patient instructions): Toothache (ED), Dry Socket (ED) Additional Instructions: Take penicillin as directed. Continue to take Motrin for pain. If pain is severe Take Tylenol 3. Please steep tea bags for 10 minutes, refrigerate them until they are cool, and then placed in the area for comfort. Please call your dentist first thing tomorrow morning. Return to the emergency department if you have any worsening symptoms. Prescriptions: Penicillin V Potassium [Pen Vee K] 500 mg PO Q6H 10 Days #40 tablet Is patient prescribed a controlled substance at d/c from ED?: No Referrals: Michael Norris MD [Primary Care Provider] - 1-2 days Time of Disposition: 20:01
== END 2019-05-27 20:19 | disposition home or self-care (01) ==
LOC: EC 18:21
DX: K08.89 Other specified disorders of teeth and supporting structures (principal); M27.3 Alveolitis of jaws; F41.9 Anxiety disorder, unspecified; Z79.899 Other long term (current) drug therapy
CPT/HCPCS: 99282

== ENCOUNTER 2019-07-30 10:53 | Emergency (ER) | payer OTHER ==
[2019-07-30 11:00] VITALS: TEMP 97.7
[2019-07-30] MEDS ORDERED: SODIUM CHLORIDE 0.9% 1,000 ML IV STA (11:18)
--- NOTE | 2019-07-30 11:23 | ED ---
General Adult HPI - General Chief complaint: Shortness of Breath Stated complaint: Sob Time Seen by Provider: 07/30/19 11:07 Source: patient, RN notes reviewed Mode of arrival: ambulatory Limitations: no limitations - History of Present Illness Initial comments: 34-year-old female presents emergency Department chief complaint of dyspnea. Patient states that she's had increasing shortness breath over the last weeks. Patient was seen in [place] when she was visiting her sister and was treated for acute bronchitis. Patient states she finished her inhaler, steroids and anti-inflammatories. Patient states that she does not feel better. She was t old that she had some sort of mass or something on her x-ray. Patient did fly back from [place] to [place] and states that her PCP vascular emergency Department for further evaluation. Patient does admit that she was sleeping prior to this. Patient also states that she's had unintentional weight loss, nausea vomiting and diarrhea. Patient states that her sister is currently being treated for colon cancer at age of 34. Patient denies any rectal bleeding. Patient states that she just does not feel well. - Related Data Home Medications Medication Instructions Recorded Confirmed Sertraline [Zoloft] 150 mg PO DAILY 09/01/18 09/01/18 Previous Rx's Medication Instructions Recorded Albuterol Sulfate [Proair Hfa] 1 - 2 puff INHALATION Q4HR PRN #1 07/30/19 inhaler Allergies Allergy/AdvReac Type Severity Reaction Status Date / Time No Known Allergies Allergy Verified 07/30/19 13:00 Review of Systems ROS Statement: Those systems with pertinent positive or pertinent negative responses have been documented in the HPI. ROS Other: All systems not noted in ROS Statement are negative. Past Medical History Past Medical History: No Reported History Additional Past Medical History / Comment(s): Gestational diabetes, 10 weeks History of Any Multi-Drug Resistant Organisms: None Reported Past Surgical History: No Surgical Hx Reported, Orthopedic Surgery Additional Past Surgical History / Comment(s): right ankle surgery, L foot cysts removed as a child Past Anesthesia/Blood Transfusion Reactions: No Reported Reaction, Motion Sickne ss Past Psychological History: Anxiety Smoking Status: Never smoker Past Alcohol Use History: None Reported Past Drug Use History: Marijuana - Past Family History Mother Family Medical History: Cancer Additional Family Medical History / Comment(s): Mother recently diagnosed wit thyroid cancer. Father Additional Family Medical History / Comment(s): Pt had little contact with her father. He at the age of 58yrs possibly from a [place]. General Exam General appearance: alert, in no apparent distress, anxious Head exam: Present: atraumatic, normocephalic, normal inspection Eye exam: Present: normal appearance, PERRL, EOMI. Absent: scleral icterus, conjunctival injection, periorbital swelling ENT exam: Present: normal exam, normal oropharynx, mucous membranes moist Neck exam: Present: normal inspection, full ROM. Absent: tenderness, meningi smus, lymphadenopathy Respiratory exam: Present: normal lung sounds bilaterally. Absent: respiratory distress, wheezes, rales, rhonchi, stridor Cardiovascular Exam: Present: normal rhythm, tachycardia, normal heart sounds. Absent: systolic murmur, diastolic murmur, rubs, gallop, clicks GI/Abdominal exam: Present: soft, normal bowel sounds. Absent: distended, tenderness, guarding, rebound, rigid Neurological exam: Present: alert, oriented X3, CN II-XII intact Course Vital Signs 07/30/19 07/30/19 10:55 11:07 Temperature 97.7 F Pulse Rate 122 H Respiratory 26 H 22 Rate Blood Pressure 97/68 O2 Sat by Pulse 98 Oximetry EKG Findings - EKG Comments: EKG Findings:: EKG performed at 12:22 normal sinus rhythm rate of 98 UT 122 QRS 80 QT/QTC 360/459 - EKG Results: EKG: interpreted by [facility] Medical Decision Making - Medical Decision Making Labs were reviewed which are unremarkable, CT was obtained secondary to abnormal chest x-ray outpatient, for possible PE as she's had 2 recent long-distance flights. This is negative for acute findings no lung mass noted. Patient does have some edema or possible admission versus with bronchitis. Patient has no noted dyspnea or hypoxic events in the emergency department. Patient be provided inhaler we did discuss stop smoking including marijuana use, and vaping.I counseled the patient for smoking cessation for greater than 3 minutes. Patient advised to follow-up with PCP to referred for colonoscopy as there is family history of colon cancer at a young age. Patient agrees. - Lab Data Result diagrams: 07/30/19 11:30 07/30/19 11:30 Lab Results 07/30/19 07/30/19 07/30/19 Range/Units 11:30 11:30 11:30 WBC 11.1 H (3.8-10.6) k/uL RBC 3.97 (3.80-5.40) m/uL Hgb 11.4 (11.4-16.0) gm/dL Hct 34.4 (34.0-46.0) % MCV 86.5 (80.0-100.0) fL MCH 28.7 (25.0-35.0) pg MCHC 33.1 (31.0-37.0) g/dL RDW 13.1 (11.5-15.5) % Plt Count 331 (150-450) k/uL Neutrophils % 84 % Lymphocytes % 10 % Monocytes % 2 % Eosinophils % 3 % Basophils % 1 % Neutrophils # 9.3 H (1.3-7.7) k/uL Lymphocytes # 1.1 (1.0-4.8) k/uL Monocytes # 0.2 (0-1.0) k/uL Eosinophils # 0.3 (0-0.7) k/uL Basophils # 0.1 (0-0.2) k/uL PT (9.0-12.0) sec INR (<1.2) APTT (22.0-30.0) sec Sodium 136 L (137-145) mmol/L Potassium 3.6 (3.5-5.1) mmol/L Chloride 101 (98-107) mmol/L Carbon Dioxide 18 L (22-30) mmol/L Anion Gap 17 mmol/L BUN 11 (7-17) mg/dL Creatinine 0.59 (0.52-1.04) mg/dL Est GFR (CKD-EPI)AfAm >90 (>60 ml/min/1.73 sqM) Est GFR (CKD-EPI)NonAf >90 (>60 ml/min/1.73 sqM) Glucose 117 H (74-99) mg/dL Calcium 9.4 (8.4-10.2) mg/dL Magnesium 2.0 (1.6-2.3) mg/dL Total Bilirubin 1.1 (0.2-1.3) mg/dL AST 30 (14-36) U/L ALT 60 H (9-52) U/L Alkaline Phosphatase 49 (38-126) U/L Troponin I (0.000-0.034) ng/mL NT-Pro-B Natriuret Pep pg/mL Total Protein 7.5 (6.3-8.2) g/dL Albumin 3.9 (3.5-5.0) g/dL Urine Color Yellow Urine Appearance Cloudy H (Clear) Urine pH 7.0 (5.0-8.0) Ur Specific Brant 1.014 (1.001-1.035) Urine Protein Negative (Negative) Urine Glucose (UA) Negative (Negative) Urine Ketones 1+ H (Negative) Urine Blood Moderate H (Negative) Urine Nitrite Negative (Negative) Urine Bilirubin Negative (Negative) Urine Urobilinogen 2.0 (<2.0) mg/dL Ur Leukocyte Esterase Trace H (Negative) Urine RBC 1 (0-5) /hpf Urine WBC 3 (0-5) /hpf Ur Squamous Epith Cells 4 (0-4) /hpf Urine Bacteria Rare H (None) /hpf Urine Mucus Rare H (None) /hpf Urine HCG, Qual (Not Detectd) Urine Opiates Screen Not Detected (NotDetected) Ur Oxycodone Screen Not Detected (NotDetected) Urine Methadone Screen Not Detected (NotDetected) Ur Propoxyphene Screen Not Detected (NotDetected) Ur Barbiturates Screen Not Detected (NotDetected) U Tricyclic Antidepress Not Detected (NotDetected) Ur Phencyclidine Scrn Not Detected (NotDetected) Ur Amphetamines Screen Not Detected (NotDetected) U Methamphetamines Scrn Not Detected (NotDetected) U Benzodiazepines Scrn Detected H (NotDetected) Urine Cocaine Screen Not Detected (NotDetected) U Marijuana (THC) Screen Detected H (NotDetected) 07/30/19 07/30/19 07/30/19 Range/Units 11:30 11:30 11:30 WBC (3.8-10.6) k/uL RBC (3.80-5.40) m/uL Hgb (11.4-16.0) gm/dL Hct (34.0-46.0) % MCV (80.0-100.0) fL MCH (25.0-35.0) pg MCHC (31.0-37.0) g/dL RDW (11.5-15.5) % Plt Count (150-450) k/uL Neutrophils % % Lymphocytes % % Monocytes % % Eosinophils % % Basophils % % Neutrophils # (1.3-7.7) k/uL Lymphocytes # (1.0-4.8) k/uL Monocytes # (0-1.0) k/uL Eosinophils # (0-0.7) k/uL Basophils # (0-0.2) k/uL PT 10.8 (9.0-12.0) sec INR 1.0 (<1.2) APTT 22.1 (22.0-30.0) sec Sodium (137-145) mmol/L Potassium (3.5-5.1) mmol/L Chloride (98-107) mmol/L Carbon Dioxide (22-30) mmol/L Anion Gap mmol/L BUN (7-17) mg/dL Creatinine (0.52-1.04) mg/dL Est GFR (CKD-EPI)AfAm (>60 ml/min/1.73 sqM) Est GFR (CKD-EPI)NonAf (>60 ml/min/1.73 sqM) Glucose (74-99) mg/dL Calcium (8.4-10.2) mg/dL Magnesium (1.6-2.3) mg/dL Total Bilirubin (0.2-1.3) mg/dL AST (14-36) U/L ALT (9-52) U/L Alkaline Phosphatase (38-126) U/L Troponin I (0.000-0.034) ng/mL NT-Pro-B Natriuret Pep 67 pg/mL Total Protein (6.3-8.2) g/dL Albumin (3.5-5.0) g/dL Urine Color Urine Appearance (Clear) Urine pH (5.0-8.0) Ur Specific Brant (1.001-1.035) Urine Protein (Negative) Urine Glucose (UA) (Negative) Urine Ketones (Negative) Urine Blood (Negative) Urine Nitrite (Negative) Urine Bilirubin (Negative) Urine Urobilinogen (<2.0) mg/dL Ur Leukocyte Esterase (Negative) Urine RBC (0-5) /hpf Urine WBC (0-5) /hpf Ur Squamous Epith Cells (0-4) /hpf Urine Bacteria (None) /hpf Urine Mucus (None) /hpf Urine HCG, Qual Not Detected (Not Detectd) Urine Opiates Screen (NotDetected) Ur Oxycodone Screen (NotDetected) Urine Methadone Screen (NotDetected) Ur Propoxyphene Screen (NotDetected) Ur Barbiturates Screen (NotDetected) U Tricyclic Antidepress (NotDetected) Ur Phencyclidine Scrn (NotDetected) Ur Amphetamines Screen (NotDetected) U Methamphetamines Scrn (NotDetected) U Benzodiazepines Scrn (NotDetected) Urine Cocaine Screen (NotDetected) U Marijuana (THC) Screen (NotDetected) 07/30/19 Range/Units 11:30 WBC (3.8-10.6) k/uL RBC (3.80-5.40) m/uL Hgb (11.4-16.0) gm/dL Hct (34.0-46.0) % MCV (80.0-100.0) fL MCH (25.0-35.0) pg MCHC (31.0-37.0) g/dL RDW (11.5-15.5) % Plt Count (150-450) k/uL Neutrophils % % Lymphocytes % % Monocytes % % Eosinophils % % Basophils % % Neutrophils # (1.3-7.7) k/uL Lymphocytes # (1.0-4.8) k/uL Monocytes # (0-1.0) k/uL Eosinophils # (0-0.7) k/uL Basophils # (0-0.2) k/uL PT (9.0-12.0) sec INR (<1.2) APTT (22.0-30.0) sec Sodium (137-145) mmol/L Potassium (3.5-5.1) mmol/L Chloride (98-107) mmol/L Carbon Dioxide (22-30) mmol/L Anion Gap mmol/L BUN (7-17) mg/dL Creatinine (0.52-1.04) mg/dL Est GFR (CKD-EPI)AfAm (>60 ml/min/1.73 sqM) Est GFR (CKD-EPI)NonAf (>60 ml/min/1.73 sqM) Glucose (74-99) mg/dL Calcium (8.4-10.2) mg/dL Magnesium (1.6-2.3) mg/dL Total Bilirubin (0.2-1.3) mg/dL AST (14-36) U/L ALT (9-52) U/L Alkaline Phosphatase (38-126) U/L Troponin I <0.012 (0.000-0.034) ng/mL NT-Pro-B Natriuret Pep pg/mL Total Protein (6.3-8.2) g/dL Albumin (3.5-5.0) g/dL Urine Color Urine Appearance (Clear) Urine pH (5.0-8.0) Ur Specific Brant (1.001-1.035) Urine Protein (Negative) Urine Glucose (UA) (Negative) Urine Ketones (Negative) Urine Blood (Negative) Urine Nitrite (Negative) Urine Bilirubin (Negative) Urine Urobilinogen (<2.0) mg/dL Ur Leukocyte Esterase (Negative) Urine RBC (0-5) /hpf Urine WBC (0-5) /hpf Ur Squamous Epith Cells (0-4) /hpf Urine Bacteria (None) /hpf Urine Mucus (None) /hpf Urine HCG, Qual (Not Detectd) Urine Opiates Screen (NotDetected) Ur Oxycodone Screen (NotDetected) Urine Methadone Screen (NotDetected) Ur Propoxyphene Screen (NotDetected) Ur Barbiturates Screen (NotDetected) U Tricyclic Antidepress (NotDetected) Ur Phencyclidine Scrn (NotDetected) Ur Amphetamines Screen (NotDetected) U Methamphetamines Scrn (NotDetected) U Benzodiazepines Scrn (NotDetected) Urine Cocaine Screen (NotDetected) U Marijuana (THC) Screen (NotDetected) Disposition Clinical Impression: Acute bronchitis Disposition: HOME SELF-CARE Condition: Stable Instructions (If sedation given, give patient instructions): Acute Bronchitis (ED) Additional Instructions: Please return to the Emergency Department if symptoms worsen or any other concerns. Prescriptions: Albuterol Sulfate [Proair Hfa] 1 - 2 puff INHALATION Q4HR PRN #1 inhaler PRN Reason: difficulty in breathing Is patient prescribed a controlled substance at d/c from ED?: No Referrals: Michael Norris MD [Primary Care Provider] - 1-2 days Time of Disposition: 13:22
[2019-07-30 11:43] LABS: Basophils # (A) 0.1 k/uL (0-0.2); Basophils % (A) 1 %; Eosinophils # (A) 0.3 k/uL (0-0.7); Eosinophils % (A) 3 %; HCT 34.4 % (34.0-46.0); HGB 11.4 gm/dL (11.4-16.0); Lymphocytes # (A) 1.1 k/uL (1.0-4.8); Lymphocytes % (A) 10 %; MCH 28.7 pg (25.0-35.0); MCHC 33.1 g/dL (31.0-37.0); MCV 86.5 fL (80.0-100.0); Mean Platelet Volume 7.3; Monocytes # (A) 0.2 k/uL (0-1.0); Monocytes % (A) 2 %; Neutrophils # (A) 9.3 k/uL (1.3-7.7); Neutrophils % (A) 84 %; Platelet Count 331 k/uL (150-450); RBC 3.97 m/uL (3.80-5.40); RDW 13.1 % (11.5-15.5); WBC 11.1 k/uL (3.8-10.6)
[2019-07-30 11:49] LABS: Appearance,Urine Cloudy (Clear); Bacteria,Urine Rare /hpf; Bilirubin,Urine Negative (Negative); Blood,Urine Moderate (Negative); Color,Urine Yellow; Glucose,Urine (UA) Negative (Negative); Ketones,Urine 1+ (Negative); Leukocyte Esterase,Urine Trace (Negative); Mucus,Urine Rare /hpf; Nitrite,Urine Negative (Negative); Protein,Urine Negative (Negative); RBC,Urine 1 /hpf (0-5); Specific Gravity,Urine 1.014 (1.001-1.035); Squamous Epithelial Cell,Urine 4 /hpf (0-4)
[2019-07-30 11:55] LABS: ALT 60 U/L (9-52); AST 30 U/L (14-36); African American GFR (CKD) >90 (>60 ml/min/1.73 sqM); Albumin 3.9 g/dL (3.5-5.0); Alkaline Phosphatase 49 U/L (38-126); Anion Gap 17 mmol/L; Blood Urea Nitrogen 11 mg/dL (7-17); Calcium 9.4 mg/dL (8.4-10.2); Carbon Dioxide 18 mmol/L (22-30); Chloride 101 mmol/L (98-107); Glucose 117 mg/dL (74-99); Non-African American GFR(CKD) >90 (>60 ml/min/1.73 sqM); Potassium 3.6 mmol/L (3.5-5.1); Sodium 136 mmol/L (137-145); Total Bilirubin 1.1 mg/dL (0.2-1.3); Total Protein 7.5 g/dL (6.3-8.2)
[2019-07-30 11:59] LABS: Amphetamine Screen,Urine Not Detected (NotDetected); Barbiturate Screen,Urine Not Detected (NotDetected); Benzodiazepines Screen,Urine Detected (NotDetected); Cocaine Screen,Urine Not Detected (NotDetected); Methadone Screen, Urine Not Detected (NotDetected); Opiate Screen,Urine Not Detected (NotDetected); Oxycodone Screen, Urine Not Detected (NotDetected); Phencyclidine Screen,Urine Not Detected (NotDetected); Tricyclic Antidepressant,Urine Not Detected (NotDetected); Urn Cannabinoid Scrn Detected (NotDetected)
[2019-07-30 12:28] LABS: Partial Thromboplastin Time 22.1 sec (22.0-30.0); Prothrombin Time 10.8 sec (9.0-12.0)
--- NOTE | 2019-07-30 12:52 | CT ---
CT CHEST FOR PULMONARY EMBOLISM. EXAMINATION TYPE: CT chest angio for PE DATE OF EXAM: 07/30/2019 INDICATION: SOB CT DLP: 599.6 mGycm, Automated exposure control for dose reduction was used. CONTRAST: Patient injected with 100 mL of Isovue 370. COMPARISON: None TECHNIQUE: CT of the chest is performed on a spiral scan at 2 mm thick sections. Study is performed with intravenous contrast timed for evaluation for pulmonary embolism. This will limit additional po rtions of the evaluation. 3-D MIP images reconstructed by the technologist are reviewed on the compu ter in the coronal and sagittal planes. FINDINGS: No persistent filling defects are evident to suggest an acute pulmonary embolism. No mediastinal or hilar adenopathy enlarged by CT criteria is evident. The ascending aorta diameter at the level of the main pulmonary artery is 2.7 cm. The main pulmonary artery diameter at the bifur cation is 2.7 cm. There is a faint mosaic pattern of increased density scattered throughout the bilateral lung echavarria c ompatible some minimal pulmonary edema. No suspicious focal consolidation is evident. No lung masses are identified. Limited CT section through the upper abdomen are unremarkable. IMPRESSIONS: 1. No acute pulmonary embolism. 2. Minimal pulmonary edema may be present.
[2019-07-30 13:39] VITALS: BP 134/76; PULSE 99; RESP 16
== END 2019-07-30 13:37 | disposition home or self-care (01) ==
LOC: EC 10:53
DX: J20.9 Acute bronchitis, unspecified (principal); R11.2 Nausea with vomiting, unspecified; R19.7 Diarrhea, unspecified; F41.9 Anxiety disorder, unspecified; Z71.6 Tobacco abuse counseling; Z98.890 Other specified postprocedural states; Z79.899 Other long term (current) drug therapy
CPT/HCPCS: 99285 ×2; 96360 ×2; 96361 ×2; 36415; 93005; 83880; 80053; 83735; 84484; 85025; 85610; 85730; 81001; 81025; 80306; 71275; Q9967

== ENCOUNTER 2020-09-14 16:25 | Emergency (ER) | payer OTHER ==
[2020-09-14 16:29] VITALS: RESP 16; TEMP 98
[2020-09-14] MEDS ORDERED: SODIUM CHLORIDE 0.9% 1,000 ML IV STA (16:46)
[2020-09-14] MEDS ORDERED: ONDANSETRON 4 MG/2 ML VIAL IVP STA (16:46)
--- NOTE | 2020-09-14 17:03 | ED ---
General Adult HPI - General Chief complaint: Nausea/Vomiting/Diarrhea Stated complaint: Vomiting Time Seen by Provider: 09/14/20 16:27 Source: EMS Mode of arrival: EMS Limitations: no limitations - History of Present Illness Initial comments: Patient is a 35-year-old female presenting to the emergency department via EMS with complaints of vomiting that started about noon today. Patient states when she woke up this morning she felt her normal self and felt great, she went to work and then developed a feeling of nausea around noon today. Patient states she has been sweating and feels very fatigued and it feels "fuzzy." She denies having any pain anywhere, no abdominal pain, no chest pain, no headache. She denies having a cough or shortness of breath. She denies being at this time. She denies any changes in her medication, she states she only takes Zoloft. She denies any new medications, she denies alcohol or drug use. Patient has no further complaints at this time. Upon arrival to the ER her vital signs are stable. - Related Data Home Medications Medication Instructions Recorded Confirmed Sertraline [Zoloft] 150 mg PO DAILY 09/01/18 09/01/18 Previous Rx's Medication Instructions Recorded Albuterol Sulfate [Proair Hfa] 1 - 2 puff INHALATION Q4HR PRN #1 07/30/19 inhaler Allergies Allergy/AdvReac Type Severity Reaction Status Date / Time No Known Allergies Allergy Verified 09/14/20 16:27 Review of Systems ROS Statement: Those systems with pertinent positive or pertinent negative responses have been documented in the HPI. ROS Other: All systems not noted in ROS Statement are negative. Past Medical History Past Medical History: No Reported History Additional Past Medical History / Comment(s): Gestational diabetes, 10 weeks History of Any Multi-Drug Resistant Organisms: None Reported Past Surgical History: No Surgical Hx Reported, Orthopedic Surgery Additional Past Surgical History / Comment(s): right ankle surgery, L foot cysts removed as a child Past Anesthesia/Blood Transfusion Reactions: No Reported Reaction, Motion Sickness Past Psychological History: Anxiety Smoking Status: Current every day smoker Past Alcohol Use History: None Reported Past Drug Use History: Marijuana - Past Family History Mother Family Medical History: Cancer Additional Family Medical History / Comment(s): Mother recently diagnosed wit thyroid cancer. Father Additional Family Medical History / Comment(s): Pt had little contact with her father. He at the age of 58yrs possibly from a [place]. General Exam - General Exam Comments Initial Comments: GENERAL: Patient is well-developed and well-nourished. Patient is nontoxic and in mild distress, actively dry heaving. HEAD: Atraumatic, normocephalic. EYES: Pupils equal round and reactive to light, extraocular movements intact, sclera anicteric, conjunctiva are normal. Eyelids were unremarkable. ENT: TMs normal, nares patent, oropharynx clear without exudates. Moist mucous membranes. NECK: Normal range of motion, supple without lymphadenopathy or JVD. LUNGS: Unlabored respirations. Breath sounds clear to auscultation bilaterally and equal. No wheezes rales or rhonchi. HEART: Regular rate and rhythm without murmurs, rubs or gallops. ABDOMEN: Soft, nontender, normoactive bowel sounds. No guarding, no rebound. No masses appreciated. : Deferred MUSCULOSKELETAL: Normal extremities with adequate strength and normal range of motion, no pitting or edema. No clubbing or cyanosis. NEUROLOGICAL: Patient is alert and oriented x 3. Motor and sensory are also intact. Cranial nerves II through XII grossly intact. Symmetrical smile. Normal speech, normal gait. PSYCH: Normal mood, normal affect. SKIN: Warm, Dry, normal turgor, no rashes or lesions noted. Limitations: no limitations Course Vital Signs 09/14/20 16:27 Temperature 98.0 F Pulse Rate 88 Respiratory 16 Rate Blood Pressure 128/86 O2 Sat by Pulse 99 Oximetry Medical Decision Making - Medical Decision Making Patient is a 35-year-old female who arrived via EMS with complaints of vomiting for the past 5 hours. She also complains of fatigue and feeling "fuzzy." She has no pain anywhere, her exam reveals no acute findings or signs are stable. She was given IV fluids and Zofran and this has been controlling her nausea. Her labs reveal a slight leukocytosis, most likely reactive, no other acute findings on her lab work. Urine shows no evidence of infection, urine hCG is not detected, urine drug screen shows evidence of marijuana nothing else. To do a rapid Covid which is negative. On reevaluation, patient has had no vomiting i n the ER. She states she does feel better. She has no specific area pain just generalized body aches. I discussed these findings with the patient. She is stable for discharge. We discussed that this most likely viral in nature. I recommended taking Zofran as needed for the nausea, drinking lots of fluids. Patient can follow up with her PCP. She is in agreement with this plan of care. She is stable for discharge. Return parameters were discussed with the patient and she verbalized understanding. Case discussed with Dr. Daugherty. - Lab Data Result diagrams: 09/14/20 16:53 09/14/20 16:53 Lab Results 09/14/20 09/14/20 09/14/20 Range/Units 16:53 16:53 18:27 WBC 13.0 H (3.8-10.6) k/uL RBC 4.58 (3.80-5.40) m/uL Hgb 13.4 (11.4-16.0) gm/dL Hct 42.0 (34.0-46.0) % MCV 91.7 (80.0-100.0) fL MCH 29.2 (25.0-35.0) pg MCHC 31.9 (31.0-37.0) g/dL RDW 13.2 (11.5-15.5) % Plt Count 277 (150-450) k/uL MPV 8.9 Neutrophils % 64 % Lymphocytes % 28 % Monocytes % 3 % Eosinophils % 3 % Basophils % 1 % Neutrophils # 8.4 H (1.3-7.7) k/uL Lymphocytes # 3.6 (1.0-4.8) k/uL Monocytes # 0.3 (0-1.0) k/uL Eosinophils # 0.3 (0-0.7) k/uL Basophils # 0.1 (0-0.2) k/uL Sodium 139 (137-145) mmol/L Potassium 4.4 (3.5-5.1) mmol/L Chloride 107 (98-107) mmol/L Carbon Dioxide 12 L (22-30) mmol/L Anion Gap 20 mmol/L BUN 9 (7-17) mg/dL Creatinine 0.65 (0.52-1.04) mg/dL Est GFR (CKD-EPI)AfAm >90 (>60 ml/min/1.73 sqM) Est GFR (CKD-EPI)NonAf >90 (>60 ml/min/1.73 sqM) Glucose 158 H (74-99) mg/dL Calcium 9.6 (8.4-10.2) mg/dL Total Bilirubin 0.7 (0.2-1.3) mg/dL AST 36 (14-36) U/L ALT 21 (4-34) U/L Alkaline Phosphatase 62 (38-126) U/L Total Protein 8.8 H (6.3-8.2) g/dL Albumin 4.9 (3.5-5.0) g/dL Urine Color Urine Appearance (Clear) Urine pH (5.0-8.0) Ur Specific [place] (1.001-1.035) Urine Protein (Negative) Urine Glucose (UA) (Negative) Urine Ketones (Negative) Urine Blood (Negative) Urine Nitrite (Negative) Urine Bilirubin (Negative) Urine Urobilinogen (<2.0) mg/dL Ur Leukocyte Esterase (Negative) Urine RBC (0-5) /hpf Urine WBC (0-5) /hpf Ur Squamous Epith Cells (0-4) /hpf Urine Bacteria (None) /hpf Hyaline Casts (0-2) /lpf Urine Mucus (None) /hpf Urine HCG, Qual Not Detected (Not Detectd) Urine Opiates Screen (NotDetected) Ur Oxycodone Screen (NotDetected) Urine Methadone Screen (NotDetected) Ur Propoxyphene Screen (NotDetected) Ur Barbiturates Screen (NotDetected) U Tricyclic Antidepress (NotDetected) Ur Phencyclidine Scrn (NotDetected) Ur Amphetamines Screen (NotDetected) U Methamphetamines Scrn (NotDetected) U Benzodiazepines Scrn (NotDetected) Urine Cocaine Screen (NotDetected) U Marijuana (THC) Screen (NotDetected) Coronavirus (PCR) (Not Detectd) 09/14/20 09/14/20 09/14/20 Range/Units 18:27 18:27 18:29 WBC (3.8-10.6) k/uL RBC (3.80-5.40) m/uL Hgb (11.4-16.0) gm/dL Hct (34.0-46.0) % MCV (80.0-100.0) fL MCH (25.0-35.0) pg MCHC (31.0-37.0) g/dL RDW (11.5-15.5) % Plt Count (150-450) k/uL MPV Neutrophils % % Lymphocytes % % Monocytes % % Eosinophils % % Basophils % % Neutrophils # (1.3-7.7) k/uL Lymphocytes # (1.0-4.8) k/uL Monocytes # (0-1.0) k/uL Eosinophils # (0-0.7) k/uL Basophils # (0-0.2) k/uL Sodium (137-145) mmol/L Potassium (3.5-5.1) mmol/L Chloride (98-107) mmol/L Carbon Dioxide (22-30) mmol/L Anion Gap mmol/L BUN (7-17) mg/dL Creatinine (0.52-1.04) mg/dL Est GFR (CKD-EPI)AfAm (>60 ml/min/1.73 sqM) Est GFR (CKD-EPI)NonAf (>60 ml/min/1.73 sqM) Glucose (74-99) mg/dL Calcium (8.4-10.2) mg/dL Total Bilirubin (0.2-1.3) mg/dL AST (14-36) U/L ALT (4-34) U/L Alkaline Phosphatase (38-126) U/L Total Protein (6.3-8.2) g/dL Albumin (3.5-5.0) g/dL Urine Color Yellow Urine Appearance Cloudy H (Clear) Urine pH 5.5 (5.0-8.0) Ur Specific [place] 1.031 (1.001-1.035) Urine Protein 1+ H (Negative) Urine Glucose (UA) Negative (Negative) Urine Ketones 1+ H (Negative) Urine Blood Trace H (Negative) Urine Nitrite Negative (Negative) Urine Bilirubin Negative (Negative) Urine Urobilinogen <2.0 (<2.0) mg/dL Ur Leukocyte Esterase Negative (Negative) Urine RBC 1 (0-5) /hpf Urine WBC 3 (0-5) /hpf Ur Squamous Epith Cells 5 H (0-4) /hpf Urine Bacteria Occasional H (None) /hpf Hyaline Casts 32 H (0-2) /lpf Urine Mucus Many H (None) /hpf Urine HCG, Qual (Not Detectd) Urine Opiates Screen Not Detected (NotDetected) Ur Oxycodone Screen Not Detected (NotDetected) Urine Methadone Screen Not Detected (NotDetected) Ur Propoxyphene Screen Not Detected (NotDetected) Ur Barbiturates Screen Not Detected (NotDetected) U Tricyclic Antidepress Not Detected (NotDetected) Ur Phencyclidine Scrn Not Detected (NotDetected) Ur Amphetamines Screen Not Detected (NotDetected) U Methamphetamines Scrn Not Detected (NotDetected) U Benzodiazepines Scrn Not Detected (NotDetected) Urine Cocaine Screen Not Detected (NotDetected) U Marijuana (THC) Screen Detected H (NotDetected) Coronavirus (PCR) Not Detected (Not Detectd) Disposition Clinical Impression: Nausea & vomiting, Viral illness Disposition: HOME SELF-CARE Condition: Stable Instructions (If sedation given, give patient instructions): Acute Nausea and Vomiting (ED) Additional Instructions: Please return to the Emergency Department if symptoms worsen or any other concerns. Workup today is normal, Covid test is negative today. Most likely a viral illness. May take Zofran for additional nausea, increase fluid intake. Follow up with your PCP. Is patient prescribed a controlled substance at d/c from ED?: No Referrals: Michael Norris MD [Primary Care Provider] - 1-2 days
[2020-09-14 17:22] LABS: Basophils # (A) 0.1 k/uL (0-0.2); Basophils % (A) 1 %; Eosinophils # (A) 0.3 k/uL (0-0.7); Eosinophils % (A) 3 %; HGB 13.4 gm/dL (11.4-16.0); Lymphocytes # (A) 3.6 k/uL (1.0-4.8); Lymphocytes % (A) 28 %; MCH 29.2 pg (25.0-35.0); MCHC 31.9 g/dL (31.0-37.0); MCV 91.7 fL (80.0-100.0); Mean Platelet Volume 8.9; Monocytes # (A) 0.3 k/uL (0-1.0); Monocytes % (A) 3 %; Neutrophils # (A) 8.4 k/uL (1.3-7.7); Neutrophils % (A) 64 %; Platelet Count 277 k/uL (150-450); RBC 4.58 m/uL (3.80-5.40); RDW 13.2 % (11.5-15.5)
[2020-09-14 17:38] LABS: ALT 21 U/L (4-34); AST 36 U/L (14-36); African American GFR (CKD) >90 (>60 ml/min/1.73 sqM); Albumin 4.9 g/dL (3.5-5.0); Alkaline Phosphatase 62 U/L (38-126); Anion Gap 20 mmol/L; Blood Urea Nitrogen 9 mg/dL (7-17); Calcium 9.6 mg/dL (8.4-10.2); Carbon Dioxide 12 mmol/L (22-30); Chloride 107 mmol/L (98-107); Glucose 158 mg/dL (74-99); Non-African American GFR(CKD) >90 (>60 ml/min/1.73 sqM); Sodium 139 mmol/L (137-145); Total Bilirubin 0.7 mg/dL (0.2-1.3); Total Protein 8.8 g/dL (6.3-8.2)
[2020-09-14 17:54] LABS: Potassium 4.4 mmol/L (3.5-5.1)
[2020-09-14 19:02] LABS: Appearance,Urine Cloudy (Clear); Bacteria,Urine Occasional /hpf; Bilirubin,Urine Negative (Negative); Blood,Urine Trace (Negative); Color,Urine Yellow; Glucose,Urine (UA) Negative (Negative); Hyaline Casts,Urine 32 /lpf (0-2); Ketones,Urine 1+ (Negative); Leukocyte Esterase,Urine Negative (Negative); Mucus,Urine Many /hpf; Nitrite,Urine Negative (Negative); PH, Urine 5.5 (5.0-8.0); Protein,Urine 1+ (Negative); RBC,Urine 1 /hpf (0-5); Specific Gravity,Urine 1.031 (1.001-1.035); Squamous Epithelial Cell,Urine 5 /hpf (0-4); Urobilinogen,Urine <2.0 mg/dL (<2.0); WBC,Urine 3 /hpf (0-5)
[2020-09-14 19:07] LABS: Amphetamine Screen,Urine Not Detected (NotDetected); Barbiturate Screen,Urine Not Detected (NotDetected); Benzodiazepines Screen,Urine Not Detected (NotDetected); Cocaine Screen,Urine Not Detected (NotDetected); Methadone Screen, Urine Not Detected (NotDetected); Opiate Screen,Urine Not Detected (NotDetected); Oxycodone Screen, Urine Not Detected (NotDetected); Phencyclidine Screen,Urine Not Detected (NotDetected); Tricyclic Antidepressant,Urine Not Detected (NotDetected); Urn Cannabinoid Scrn Detected (NotDetected)
[2020-09-14] MEDS ORDERED: ONDANSETRON 4 MG ODT STARTER PACK 2 TAB BTL PO STA (19:17)
[2020-09-14 19:40] VITALS: BP 134/88; PULSE 75
== END 2020-09-14 19:35 | disposition home or self-care (01) ==
LOC: EC 16:25
DX: B34.9 Viral infection, unspecified (principal); R11.2 Nausea with vomiting, unspecified; D72.829 Elevated white blood cell count, unspecified; F41.9 Anxiety disorder, unspecified; F17.200 Nicotine dependence, unspecified, uncomplicated; Z79.899 Other long term (current) drug therapy; Z20.828 Contact with and (suspected) exposure to other viral communicable diseases
CPT/HCPCS: 36415; 80053; 85025; 81001; 81025; 80306; 87635; 99284; 96374; 96361; J2405; S0119